=== PATIENT | male | born 1955 | race Caucasian/White ===

== ENCOUNTER 2017-04-08 10:36 | Day surgery (SDC) | payer BC ==
--- NOTE | 2017-04-08 08:30 | HP ---
DATE OF SURGERY: 04/08/2017 HISTORY OF PRESENT ILLNESS: The patient is a 61 year-old had increasing, enlarging in size consistent with neck area increasing symptomatic and no draining. It has been causing increasing aches, increasing in size and desires excision. PAST MEDICAL HISTORY: He denies any chronic illnesses. PAST SURGICAL HISTORY: Neck surgery in 2010. Colonoscopy in the past. MEDICATIONS: None. ALLERGIES: PENICILLIN. FAMILY HISTORY: Negative. SOCIAL HISTORY: One pack a day smoker, occasional alcohol use denies abuse. REVIEW OF SYSTEMS: Twelve systems reviewed per admission assessment. No chest pain or palpitations other systems negative or noncontributory as above and per preadmission questionnaire. PHYSICAL EXAMINATION: GENERAL: No acute distress. HEENT: Sclerae nonicteric. NECK: No JVD. Right neck has a cyst or nodule that has been enlarging. CHEST: Clear to auscultation. CVS: Regular rate and rhythm. ABDOMEN: Soft. No peritoneal signs. EXTREMITIES: No significant edema. NEURO: Alert, moving extremities symmetrically. IMPRESSION: Enlarging symptomatic neck cyst or nodule in need of excision. I feel the patient would benefit from excision. Risks and benefits explained in detail including but not limited to bleeding or infection, small risk of wound complication or dehiscence possibly requiring packing, possibility of what we excise likely will not recur but he could get similar cyst or nodule adjacent to or elsewhere on his body. He understands as well as general risk of anesthesia, deep venous thrombosis, pulmonary embolism, pneumonia, risk of anesthesia itself. He understands and agrees to the planned procedure and will proceed with excisional biopsy of enlarging neck cyst or nodule as an outpatient.
[~2017-04-08 10:36] MED LIST: Lactated Ringers 1,000 ML IV ONE; Sensorcaine 0.25% 10 ML ONE
[2017-04-08] MEDS ORDERED: Dopram IV ONE (10:37)
[2017-04-08] MEDS ORDERED: Decadron 4 MG INJ IV ONE (10:37)
[2017-04-08] MEDS ORDERED: DIPRIVAN 200 MG/20 ML IV ONE (10:37)
[2017-04-08] MEDS ORDERED: DILAUDID 2 MG INJECTION IV ONE (10:37)
[2017-04-08] MEDS ORDERED: CLINDAMYCIN-D5W 600 MG/50 ML*** 600 MG/50 ML BAG IV ONE (10:37)
[2017-04-08] MEDS ORDERED: Levofloxacin 500MG/100ML D5W 500 MG/100 ML BAG IV ONE (10:37)
[2017-04-08] MEDS ORDERED: Zofran 4 MG/2 ML VIAL IV ONE (10:37)
[2017-04-08] MEDS ORDERED: SUBLIMAZE 100 MCG/2 ML IV ONE (10:37)
[2017-04-08] MEDS ORDERED: Quelicin Fliptop 200 MG/10 ML IV ONE (10:37)
[2017-04-08] MEDS ORDERED: Lactated Ringers 1,000 ML IV SCH (11:00)
[2017-04-08 14:57] VITALS: O2SAT 94
[2017-04-08 14:59] VITALS: BP 119/53; PULSE 60
--- NOTE | 2017-04-08 15:04 | OP ---
SURGERY DATE/TIME: 04/08/2017 1258 PREOPERATIVE DIAGNOSIS: Enlarging neck cyst or nodule. POSTOPERATIVE DIAGNOSIS: Enlarging neck cyst or nodule. PROCEDURE: Excisional biopsy with margin right neck cyst (approximately 2.6 cm with margins) with intermediate closure. SURGEON: Dr. Mj Garcia. ANESTHESIA: General. ESTIMATED BLOOD LOSS: Minimal. INDICATIONS: As noted above. Risks and benefits explained in detail and not limited to and consent obtained. DESCRIPTION OF PROCEDURE AND FINDINGS: The patient is taken to the operating room. The site had been confirmed with the patient and marked in the preoperative holding area. Taken to the operating room. General anesthesia was introduced. The neck is prepped and draped in usual sterile fashion. After official time out and no disagreement with planned procedure, in spindle-shaped fashion a sliver of skin over top hopefully including the pit down to the cyst. Dissection carried down circumferentially around this inflamed cyst. It was carefully dissected free from underlying fascia and passed off. It measured about 2.6 cm or so. With pinpoint cautery some small nonpulsatile perforators controlled with pinpoint cautery. Good hemostasis noted. The wound is irrigated out and closed in layers advancing the flaps back towards the midline with deep superficial subcu closed with 3-0 Vicryl. Skin closed with 4-0 Vicryl in running subcuticular fashion. Steri-Strips and sterile dressings applied. The patient tolerated the procedure well. There were no immediate complications. Findings discussed with the family out in the waiting area.
== END 2017-04-08 14:45 | disposition home or self-care (01) ==
LOC: SDC 10:36
PROVIDERS: ATTEND Surgery
PROC: 0HQ4XZZ Repair Neck Skin, External Approach (ICD-10-PCS; principal; 2017-04-08)
PROC: 0HB4XZZ Excision of Neck Skin, External Approach (ICD-10-PCS; 2017-04-08)
DX: L72.9 Follicular cyst of the skin and subcutaneous tissue, unspecified (principal)
CPT/HCPCS: 00300; 36415; 88304; J0330; J1100; J1170; J1956; J2405; J2704; J3010